=== PATIENT | female | born 2005 | race Caucasian/White ===

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

== ENCOUNTER 2024-12-16 08:24 | Outpatient (CLI) | payer BC, SELFPAY | END 2024-12-16 08:25 | disposition home or self-care (01) | DX: R10.11 Right upper quadrant pain (principal) | CPT/HCPCS: 78227; A9537; J2805 ==

== ENCOUNTER 2025-09-18 17:26 | Emergency (ER) | payer BC, SELFPAY ==
[2025-09-18 17:34] VITALS: BP 129/81; PULSE 104; RESP 18; TEMP 36.3; O2SAT 100
--- NOTE | 2025-09-18 18:09 | ED.ALLEREA ---
HPI - Allergic Reaction General Chief complaint: Allergic Reaction Stated complaint: CHEMICAL STOVER Time Seen by Provider: 09/18/25 17:50 Source: patient and RN notes reviewed Mode of arrival: ambulatory Limitations: no limitations History of Present Illness HPI narrative: 20-year-old female presents Express Care complaining of bilateral arm pain irritation for 2 weeks. Tried a new deodorant 2 weeks ago and developed redness pain and itchiness to her armpits. Patient's since stop using at the odor in his tried a different 1. Patient has also been continued shaved the area and still has irritation. Patient has been using Benadryl cream and hydrocortisone without relief. Patient reports a history of hyperhidrosis. Related Data Home Medications ?Medication ?Instructions ?Recorded ?Confirmed ?Last Taken ?Type atogepant 10 mg tablet (Qulipta) 10 mg PO DAILY 08/17/25 08/17/25 Unknown History buspirone 10 mg tablet 10 mg PO BID 08/17/25 08/17/25 Unknown History clonazepam 0.5 mg tablet (Klonopin) 0.5 mg PO DAILY 08/17/25 08/17/25 Unknown History dicyclomine 20 mg tablet 20 mg PO TID 08/17/25 08/17/25 Unknown History eszopiclone 1 mg tablet 1 mg PO QHS 08/17/25 08/17/25 Unknown History lamotrigine 200 mg tablet 200 mg PO DAILY 08/17/25 08/17/25 Unknown History nssbux-istyxsdf-xoypcgu(pork) 1 cap PO BID 08/17/25 08/17/25 Unknown History 60k-[id number],600 unit capsule,del rel (Zenpep) rosuvastatin 20 mg tablet 20 mg PO DAILY 08/17/25 08/17/25 Unknown History venlafaxine 37.5 mg 37.5 mg PO DAILY 08/17/25 08/17/25 Unknown History capsule,extended release 24 hr docusate sodium 100 mg capsule mg PO 09/18/25 Unknown History lansoprazole 30 mg capsule,delayed mg 09/18/25 Unknown History release multivitamin (Daily Multi-Vitamin 1 tablet PO DAILY 09/18/25 09/18/25 Unknown History tablet) topiramate 25 mg tablet (Topamax) 25 mg PO DAILY 12/05/25 12/05/25 Unknown History Allergies Allergy/AdvReac Type Severity Reaction Status Date / Time Latex, Natural Rubber Allergy Rash Verified 09/18/25 17:41 Review of Systems Review of Systems: CONSTITUTIONAL: Denies fever, chills, or sweats. EYES: Denies visual changes, redness, or discharge. ENT: Denies rhinorrhea, congestion, sore throat, or otalgia. CARDIOVASCULAR: Denies chest pain, palpitations, or edema. RESPIRATORY: Denies cough or dyspnea. GASTROINTESTINAL: Denies abdominal pain, nausea, vomiting, or diarrhea. GENITOURINARY: Denies dysuria or hematuria. SKIN: Positive for rash, burning, and itching. MUSCULOSKELETAL: Denies back pain, joint pain, or myalgia. NEUROLOGIC: Denies headache, numbness, or weakness. PSYCHIATRIC: Denies anxiety or depression. All other systems reviewed are negative, except as documented in HPI. [facility] Past Medical History Medical History Encounter for screening colonoscopy IBS (irritable bowel syndrome) Migraine ADHD Depression Anxiety Surgical History Surgical History [place] teeth removed Family History Family History Other Anxiety Hypertension Social History Social History Smoking status: Never smoker Alcohol intake: never Substance use: never Substance use type: does not use Lack of Food: Never True Current Housing: I Have Housing Concerned About Future Housing: Decline to Answer Difficulty Paying Gas/Electric Bills: Decline to Answer Difficulty Paying for Meds: Decline to Answer Currently Unemployed: Decline to Answer Education: High School Diploma/GED Difficulty w/ Childcare or Family Care: No Living arrangements: dorm student housing Occupation/Education: student Gender identity (if verbalized by the patient): Female Sexual Orientation (if Verbalized by the Patient): Straight or Heterosexual Comments At the time of my signature, I reviewed and agree with the nursing past medical, surgical, social, and family history. There is no relevant family history pertinent to the patient complaint. Exam Narrative: GENERAL: This is a well-nourished, well-developed adult, in no apparent distress. They are non ill-appearing, nontoxic appearing. HEAD: normocephalic, atraumatic. EYES: Sclera clear/white. Conjunctiva normal. Vision is grossly intact. Extraocular movements intact EARS: External ears normal, Hearing grossly intact. NOSE: External nose normal THROAT: Mucous membranes moist, NECK: Neck supple, CARDIOVASCULAR: Regular rate and rhythm RESPIRATORY: Respiratory rate normal, respiratory effort nonlabored, no respiratory distress SKIN: Axilla: Bilateral axilla is mildly erythematous macular papular, is pruritic. Nontender to palpate. No area of fluctuance, no induration. NEURO: awake, alert, and oriented to person, place and time. There were no obvious focal neurologic abnormalities. EXTREMITIES: No joint tenderness, effusion, or edema noted. BACK: Nontender without deformity. Course Course Level of Care: Express Care Visit Vital Signs Vital signs: Vital Signs Temperature 97.4 F L 09/18/25 17:34 Pulse Rate 104 H 09/18/25 17:34 Respiratory Rate 18 09/18/25 17:34 Blood Pressure 129/81 09/18/25 17:34 Pulse Oximetry 100 09/18/25 17:34 Temperature 97.4 F L 09/18/25 17:34 Pulse Rate 104 H 09/18/25 17:34 Respiratory Rate 18 09/18/25 17:34 Blood Pressure 129/81 09/18/25 17:34 Pulse Oximetry 100 09/18/25 17:34 [facility] MDM Narrative Medical decision making narrative: Patient likely has contact dermatitis. Will prescribe her Tramacet along cream. Advised her to avoid any products under skin avoid shaving until those symptoms have resolved. Discussed supportive care. Discussed physical exam findings. Advised supportive measures and signs/symptoms to go to the ER. Pt is appropriate for outpt treatment and f/u. Differential Diagnosis Differential Diagnosis: Folliculitis, contact dermatitis, allergic reaction Critical Care Time Critical Care Time Critical Care Time: No Discharge Plan Discharge Clinical Impression: Contact dermatitis Qualifiers: Contact dermatitis type: irritant Contact dermatitis trigger: detergents Qualified Code(s): L24.0 - Irritant contact dermatitis due to detergents Patient Disposition: Home Condition: Stable Instructions: Contact Dermatitis (ED) Additional Instructions: Use the triamcinolone cream as directed. Avoid any products that are irritating her skin. Do not shave or apply any products to the armpits until the irritation has resolved. Wash the area daily with mild soap and water, do not use hot water. Use lukewarm water. Follow-up with PCP in 3-5 days. If you developed worsening redness, swelling, pain, fevers, drainage, or any other serious concerns please go to the ER immediately. Patient Language: Frisian Prescriptions: New triamcinolone acetonide 0.1 % cream 1 applic topical BID 7 Days Qty: 15 0RF No Action lansoprazole 30 mg capsule,delayed release(DR/EC) docusate sodium 100 mg capsule PO multivitamin [Daily Multi-Vitamin] Tablet 1 tablet PO DAILY topiramate [Topamax] 25 mg tablet 25 mg PO DAILY venlafaxine 37.5 mg capsule,extended release 24hr 37.5 mg PO DAILY lamotrigine 200 mg tablet 200 mg PO DAILY clonazepam [Klonopin] 0.5 mg tablet 0.5 mg PO DAILY dicyclomine 20 mg tablet 20 mg PO TID buspirone 10 mg tablet 10 mg PO BID rosuvastatin 20 mg tablet 20 mg PO DAILY eszopiclone 1 mg tablet 1 mg PO QHS Qulipta 10 mg tablet 10 mg PO DAILY Zenpep 60,000-189,600- 252,600 unit capsule,delayed release(DR/EC) 1 cap PO BID Rx Instructions: administer with meals and/or snacks norethindrone-e.estradiol-iron [ 1.5/30 (28)] 1.5 mg-30 mcg (21)/75 mg (7) tablet 1 tablet PO DAILY Qty: 84 4RF Follow-up/Referrals: Eduardo,Silvio [Other] Time of Disposition: 18:03
== END 2025-09-18 18:10 | disposition home or self-care (01) ==
DX: L24.5 Irritant contact dermatitis due to other chemical products (principal); F41.9 Anxiety disorder, unspecified; F32.A Depression, unspecified
CPT/HCPCS: 99213; G0463